=== PATIENT | female | born 1965 | race Caucasian/White ===

== ENCOUNTER 2016-08-28 16:31 | Emergency (ER) | payer OTHER ==
[2016-08-28 17:58] LABS: HEMOGLOBIN 16.3 gm/dl (12.3-15.3); RED BLOOD COUNT 5.15 M/UL (4.00-5.10); WHITE BLOOD COUNT 11.3 K/UL (4.5-11.0)
[2016-08-28 18:46] LABS: BUN/CREATININE RATIO 14 (0-10)
== END 2016-08-28 20:10 | disposition home or self-care (01) ==
LOC: ER1 16:31
PROVIDERS: Emergency Medicine
DX: K57.92 Diverticulitis of intestine, part unspecified, without perforation or abscess without bleeding (principal); I25.10 Atherosclerotic heart disease of native coronary artery without angina pectoris; Z95.5 Presence of coronary angioplasty implant and graft; Z88.0 Allergy status to penicillin; Z88.1 Allergy status to other antibiotic agents
CPT/HCPCS: 36415; 80053; 81001; 83605; 83690; 85025; 87040; 87086; 96374; 96375; 99284; J2270; J2405